=== PATIENT | male | born 1965 | race African-American/Black ===

== ENCOUNTER 2024-04-03 13:31 | Inpatient (IN) ==
[2024-04-03 15:30] LABS: ABG ALLEN TEST POS
[2024-04-03 15:39] LABS: BASOPHILS # (AUTO) 0.1 X10^3/uL (0.0-0.1); BASOPHILS % (AUTO) 0.9 % (0.2-1.0); EOSINOPHILS # (AUTO) 0.2 x10^3/uL (0.0-0.2); EOSINOPHILS % (AUTO) 1.5 % (0.9-2.9); HEMATOCRIT 36.3 % (42.0-54.0); HEMOGLOBIN 11.8 g/dL (13.5-18.0); LYMPHOCYTES # (AUTO) 2.1 X10^3/uL (1.3-2.9); LYMPHOCYTES % (AUTO) 20.3 % (21.0-51.0); MEAN CORPUSCULAR HEMOGLOBIN 21.8 pg (27.0-34.0); MEAN CORPUSCULAR HGB CONC 32.6 g/dL (33.0-35.0); MEAN PLATELET VOLUME 8.2 fL (7.4-11.0); MONOCYTES # (AUTO) 0.7 x10^3/uL (0.3-0.8); NEUTROPHILS # (AUTO) 7.3 x10^3/uL (2.2-4.8); NEUTROPHILS % (AUTO) 70.3 % (42.0-75.0); PLATELET COUNT 423 X10^3/uL (150.0-450.0); RED BLOOD COUNT 5.41 X10^6/uL (4.7-6.0); RED CELL DISTRIBUTION WIDTH 15.2 % (11.6-16.5); WHITE BLOOD COUNT 10.4 X10^3/uL (3.6-10.0)
--- NOTE | 2024-04-03 15:48 | EKG ---
Test Reason : sob Blood Pressure : */* mmHG Vent. Rate : 62 BPM Atrial Rate : 62 BPM P-R Int : 180 ms QRS Dur : 84 ms QT Int : 450 ms P-R-T Axes : 25 5 -19 degrees QTc Int : 456 ms Normal sinus rhythm Nonspecific T wave abnormality small lateral q waves noted Abnormal ECG No previous ECGs available Confirmed by Armand Jones MD ([id number]) on 04/04/2024 7:28:00 AM Referred By: Confirmed By: Armand Jones MD
[2024-04-03 15:52] LABS: ALANINE AMINOTRANSFERASE 56 Units/L (12-78); ALKALINE PHOSPHATASE 63 Units/L (46-116); ASPARTATE AMINO TRANSFERASE 35 Units/L (15-37); BLOOD UREA NITROGEN 13 mg/dL (7-18); CALCIUM 9.1 mg/dL (8.5-10.1); CARBON DIOXIDE 32.2 mmol/L (21-32); CHLORIDE 101 mmol/L (98-107); COR CA(FOR HYPOALB) 9.9 mg/dL (8.5-10.1); CREATININE 0.94 mg/dL (0.70-1.30); GLUCOSE 102 mg/dL (65-99); POTASSIUM 3.6 mmol/L (3.5-5.1); SODIUM 140 mmol/L (136-145); TOTAL PROTEIN 8.5 g/dL (6.4-8.2); eGFR NON BLACK RACES > 60 (>60)
[2024-04-03 16:00] LABS: MICROCYTOSIS 1+; OVALOCYTES SLIGHT; PLATELET MORPHOLOGY COMMENT NORMAL (NORMAL)
[2024-04-03] MEDS: PROTONIX INJ 40 MG VIAL IVP SCH (16:17)
[2024-04-03] MEDS: ROCEPHIN VIAL 1 GRAM 1 G in NS 100 ML IV 100 ML IV SCH (16:18)
[2024-04-03] MEDS: NS 1,000 ML IV 1,000 ML IV SCH (16:18)
--- NOTE | 2024-04-03 16:26 | RAD ---
EXAMINATION: CHEST, 1 VIEW HISTORY: EXERTIONAL SOB; . COMPARISON STUDY: None. TECHNIQUE: Single AP view of the chest FINDINGS: Lungs are expanded. Equivocal patchy infiltrate left pulmonary base. Mild cardiac silhouette enlarg ement. Normal pulmonary vascular pattern. Bones appear intact. IMPRESSION: Equivocal patchy infiltrate left pulmonary base. Mild cardiac silhouette enlargement. THIS IS AN ELECTRONICALLY VERIFIED FINAL REPORT 04/03/2024 4:23 PM - Electronically signed by Ronel Campo MD
[2024-04-03 16:46] VITALS: BMI 29.6
[2024-04-03] MEDS ORDERED: CONSULT PHARMACY - POTASSIUM & MAGNESIUM XX SCH (20:00)
[2024-04-03] MEDS: KLOR-CON PO SCH (20:32)
--- NOTE | 2024-04-03 20:38 | EKG ---
Test Reason : sob Blood Pressure : */* mmHG Vent. Rate : 58 BPM Atrial Rate : 58 BPM P-R Int : 146 ms QRS Dur : 84 ms QT Int : 476 ms P-R-T Axes : 44 24 -63 degrees QTc Int : 467 ms Sinus bradycardia Possible Left atrial enlargement Nonspecific T wave abnormality tiny lateral q waves Abnormal ECG When compared with ECG of 03-APR-2024 15:11, (Unconfirmed) No significant change was found Confirmed by Armand Jones MD ([id number]) on 04/04/2024 7:27:00 AM Referred By: Confirmed By: Armand Jones MD
[2024-04-04 00:40] LABS: BILIRUBIN,URINE NEGATIVE (NEGATIVE); BLOOD/HEMOGLOBIN,URINE NEGATIVE (NEGATIVE); GLUCOSE, URINE NEGATIVE (NEGATIVE); KETONES,URINE NEGATIVE (NEGATIVE); LEUKOCYTE ESTERASE ,URINE NEGATIVE (NEGATIVE); NITRITES,URINE NEGATIVE (NEGATIVE); PROTEIN,URINE 2+ (NEGATIVE); UROBILINOGEN,URINE NORMAL (NORMAL)
[2024-04-04 00:48] LABS: APPEARANCE,URINE CLEAR (CLEAR); BACTERIA,URINE TRACE /HPF (NEGATIVE); COLOR,URINE YELLOW (YELLOW); RBC,URINE 0-2 /HPF (0-3); SQUAMOUS EPITHELIAL CELL,UR RARE /HPF (NEGATIVE)
--- NOTE | 2024-04-04 03:03 | EKG ---
Test Reason : EXERTIONAL SOB Blood Pressure : */* mmHG Vent. Rate : 49 BPM Atrial Rate : 49 BPM P-R Int : 164 ms QRS Dur : 86 ms QT Int : 490 ms P-R-T Axes : * -14 6 degrees QTc Int : 442 ms Sinus bradycardia Lateral infarct , age undetermined Abnormal ECG When compared with ECG of 03-APR-2024 20:21, (Unconfirmed) Lateral infarct is now present Nonspecific T wave abnormality, improved in Anterior leads Confirmed by Armand Jones MD ([id number]) on 04/04/2024 7:26:02 AM Referred By: Confirmed By: Armand oJnes MD
[2024-04-04 03:34] LABS: BASOPHILS # (AUTO) 0.1 X10^3/uL (0.0-0.1); BASOPHILS % (AUTO) 1.3 % (0.2-1.0); EOSINOPHILS # (AUTO) 0.2 x10^3/uL (0.0-0.2); EOSINOPHILS % (AUTO) 2.5 % (0.9-2.9); HEMATOCRIT 33.6 % (42.0-54.0); HEMOGLOBIN 10.8 g/dL (13.5-18.0); LYMPHOCYTES % (AUTO) 21.8 % (21.0-51.0); MEAN CORPUSCULAR HEMOGLOBIN 21.7 pg (27.0-34.0); MEAN CORPUSCULAR HGB CONC 32.3 g/dL (33.0-35.0); MEAN CORPUSCULAR VOLUME 67.3 fL (80.0-100.0); MEAN PLATELET VOLUME 8.5 fL (7.4-11.0); MONOCYTES # (AUTO) 0.6 x10^3/uL (0.3-0.8); MONOCYTES % (AUTO) 6.9 % (0.0-13.0); NEUTROPHILS # (AUTO) 6.3 x10^3/uL (2.2-4.8); NEUTROPHILS % (AUTO) 67.5 % (42.0-75.0); PLATELET COUNT 430 X10^3/uL (150.0-450.0); RED BLOOD COUNT 4.99 X10^6/uL (4.7-6.0); RED CELL DISTRIBUTION WIDTH 15.1 % (11.6-16.5); WHITE BLOOD COUNT 9.3 X10^3/uL (3.6-10.0)
[2024-04-04 03:43] LABS: ALANINE AMINOTRANSFERASE 52 Units/L (12-78); ALBUMIN 2.5 g/dL (3.4-5.0); ALKALINE PHOSPHATASE 54 Units/L (46-116); ASPARTATE AMINO TRANSFERASE 30 Units/L (15-37); BLOOD UREA NITROGEN 12 mg/dL (7-18); CALCIUM 8.6 mg/dL (8.5-10.1); CARBON DIOXIDE 33.3 mmol/L (21-32); CHLORIDE 104 mmol/L (98-107); COR CA(FOR HYPOALB) 9.8 mg/dL (8.5-10.1); COR NA(FOR HYPERGLY) 141 mmol/L (136-145); CREATININE 0.97 mg/dL (0.70-1.30); GLUCOSE 111 mg/dL (65-99); POTASSIUM 3.8 mmol/L (3.5-5.1); SODIUM 141 mmol/L (136-145); TOTAL PROTEIN 7.3 g/dL (6.4-8.2); eGFR NON BLACK RACES > 60 (>60)
[2024-04-04 03:50] LABS: HYPOCHROMASIA 1+; MICROCYTOSIS 1+; OVALOCYTES SLIGHT; PLATELET MORPHOLOGY COMMENT NORMAL (NORMAL); TARGET CELLS SLIGHT
[2024-04-04] MEDS: PULMICORT NEB TX 0.5 MG NEB SCH (08:39)
[2024-04-04] MEDS ORDERED: CRESTOR TAB 10 MG PO SCH (09:00)
[2024-04-04] MEDS: FLOMAX PO SCH (10:48)
[2024-04-04] MEDS: LASIX IVP ONE (10:49)
[2024-04-04] MEDS: SOLU-Medrol 40 MG VIAL IVP SCH (10:49)
[2024-04-04] MEDS: ZITHROMAX INJ 500 MG VIAL 500 MG in NS 250 ML IV 250 ML IV SCH (11:32)
[2024-04-04] MEDS: XOPENEX 1.25 MG/3 ML NEBULE NEB SCH (13:08)
--- NOTE | 2024-04-04 13:13 | CT ---
EXAMINATION: CTA, CHEST HISTORY: SOB, ELEVATED D DIMER, R/O PE; . COMPARISON: None. TECHNIQUE: Routine axial imaging of the chest was performed. CT angiography of the chest was performed with maxi mum intensity projection images and volume rendered images on a workstation.. The above CT scan was done with automated exposure control and the mA and kV was adjusted to obtain quality images accordin g to patient size. FINDINGS: Lungs: There is bronchial thickening and atelectasis in the lung bases, right middle lobe and lingul a. There is pleural calcification in the lung bases. 3 mm nodule in the right upper lobe. No alveo lar infiltrates, ground-glass opacities or interstitial changes Central Airways: No obstructing endobronchial lesions Pleura: No pleural effusion or pneumothorax Thoracic Aorta: Tapers and enhances normally. Atherosclerotic calcification. Main Pulmonary Trunk: Mildly enlarged at 3.1 cm. This may represent pulmonary arterial hypertension . No CT angiography evidence for acute pulmonary embolus. Evaluation of segmental and subsegmental branches limited by respiratory motion Lymph Nodes: No pathologic hilar, axillary or mediastinal adenopathy Heart/Pericardium: Cardiomegaly. No significant pericardial effusion Liver: No acute findings. GB/Biliary: Not visualized Spleen: Normal size and density Pancreas: No acute findings as visualized Adrenal Glands: Not visualized Kidneys not visualized. Abdominal Aorta: Tapers and enhances normally Retroperitoneum: No pathologically enlarged lymph nodes Bowel/Peritoneal Cavity: No acute findings as visualized Osseous Structures: Degenerative changes are present in the thoracic spine. Other: None IMPRESSION: No CT angiography evidence for acute pulmonary embolus or aortic dissection. Evaluation of segmental and subsegmental branches limited by respiratory motion. Bronchial thickening with atelectasis in the lung bases, right middle lobe and lingula. Pleural calcification at the lung bases. 3 mm nodule in the right upper lobe. In a low risk patient no further workup necessary. In a high-r isk patient recommend repeat CT scan in [address] scan was done with automated exposure control and the mA and kV was adjusted to obtain q uality images according to patient size THIS IS AN ELECTRONICALLY VERIFIED FINAL REPORT 04/04/2024 1:10 PM - Electronically signed by Roosevelt Sarah MD
[2024-04-04] MEDS ORDERED: CONSULT PHARMACY - POTASSIUM & MAGNESIUM XX SCH ×2 (14:00→19:00)
[2024-04-04] MEDS: K-DUR TAB 20 MEQ PO SCH (14:21)
[2024-04-04] MEDS: OMNIPAQUE 350 mg/mL 100 mL BTL 100 ML ONE (14:38)
[2024-04-04] MEDS: K-DUR TAB 20 MEQ PO ONE (17:05)
--- NOTE | 2024-04-04 17:44 | DR.H&P ---
H&P History & Physical for Day of: H&P Date: 04/03/24 Chief Complaint Chief Complaint: sob, weakness History of Present Illness History of Present Illness: PT IS 58M, DIRECT ADMIT WITH SOB, WORSE ON EXERTION. PT STATES HE WAS SICK WITH CHEST CONGESTION AND FLU LIKE SYMPTOMS AND WAS SEEN IN ER IN [place] ON 03/28. PT WAS ADMITTED FOR 2 DAYS AND TOLD HE HAD PNUEMONIA. PT CO STILL VERY WEAK AND SOB. PT DENIES ANY KNOWN CAD. PT HAS PMH OF HTN, HYPERLIPIDEMIA AND OA. PT ADMITTED FOR TREATMENT AND EVALUATION OF ACUTE ILLNESS. Allergies Allergies Allergy/AdvReac Type Severity Reaction Status Date / Time hydrocodone Allergy Verified 04/03/24 17:14 Labs 04/04/24 03:05 04/04/24 03:05 Review of Systems Constitutional: Sweats, Weakness and Malaise Eyes: No Symptoms Reported ENT: No Symptoms Reported Respiratory: No Symptoms Reported, Shortness of Breath, Pleuritic Pain and Wheezing Cardiovascular: Chest Pain (CHEST TIGHTNESS) Gastrointestinal: Nausea Genitourinary: No Symptoms Reported Musculoskeletal: Back Pain Skin: No Symptoms Reported Neurological: Weakness and Other (HEADACHES, DIZZY SPELLS ) Oriented: Normal Eyes: Normal Ear: Normal Nose: Discharge Throat: Exudate Respiratory: Wheezes Throughout Cardiovascular: Bradycardia Auscultation: Bowel Sounds: Normal Palpation: Normal Tenderness: Normal Skin: Decreased Turgur Musculoskeletal: Back:Lumbar Psychiatric: Normal Mood Description: Anxious Speech Pattern: Clear and Appropriate Assessment/Plan (1) Pneumonia: Narrative Support Text: ADMIT, PNEUMONIA PROTOCOL, SERIAL CE AND EKG BLOOD AND SPUTUM CULTURES IV HYDRATION WITH I&OS VERIFY HOME MEDICATIONS BNP, DDIMER ON ADMISSION ROOM AIR ABG, SUPPLEMENTAL O2 Status: Acute (2) SOB (shortness of breath): Status: Acute (3) Hypertension: Status: Acute (4) Weakness: Status: Acute
--- NOTE | 2024-04-04 17:48 | PCM.PROG ---
Progress Note Progress Note for Day of Date of Exam: 04/04/24 Subjective Subjective: PT IS 58 BM, DIRECT ADMIT WITH PNEUMONIA AND DIFFUSE WEAKNESS WITH MARKED SOB, WORSE ON EXERTION. PT WAS STARTED ON IV ATBX WITH PNEUMONIA PROTOCOL ON ADMISSION. PT HAD ELEVEATED DIMER WITH HPOXIA ON ABG, RECOMMENDED CTA CHEST TO RO PE. TECHNICAL MANAGER CONTACTING INSURANCE FOR APPROVAL. PT HAD SERIAL CE THAT WERE STABLE. PT HAS HAD BRADYCARDIA WITHOUT ANY HOME MEDICATION TO CAUSE BRADYCARDIA AND PT DENIES ANY KNOWN HX OF IRREGULAR HEART. PT CO INCREASED LOWER LEG SWELLING SINCE ONSET OF ILLNESS LAST WEEK. PT HAD DIFFUSE DIMINISHED LUNG BASES WITH UPPER EXPIRATORY WHEEZES ON EXAM. PLAN TO OBTAIN AN ECHO TODAY RO CARDIOMYOPATHY, CHF. Past Medical Family Social History Allergies: Allergies hydrocodone Allergy (Verified 04/03/24 17:14) Vital Signs and I&O's Vital Signs: Vital Signs Temperature 98.1 F Temperature 97.9 F Pulse Rate 88 Pulse Rate 61 Respiratory Rate 22 Respiratory Rate 19 Blood Pressure 133/73 Blood Pressure 134/72 O2 Sat by Pulse Oximetry 98 O2 Sat by Pulse Oximetry 98 Intake and Output: Intake & Output 04/02/24 04/03/24 04/04/24 04/05/24 11:59 11:59 11:59 11:59 Intake Total 602 / 602 Balance 602 / 602 Physical Exam Oriented: Normal Eyes: Normal Ear: Normal Nose: Discharge Throat: Exudate Respiratory: Diminished and Wheezes Cardiovascular: Bradycardia Auscultation: Bowel Sounds: Normal Tenderness: Normal Skin: Decreased Turgur Musculoskeletal: Back:Lumbar Psychiatric: Normal Mood Description: Anxious Speech Pattern: Clear and Appropriate Laboratory and Diagnostics 04/04/24 03:05 04/04/24 03:05 Labs: Laboratory WBC 9.3 X10^3/uL (3.6-10.0) 04/04/24 03:05 RBC 4.99 X10^6/uL (4.7-6.0) 04/04/24 03:05 Hgb 10.8 g/dL (13.5-18.0) L 04/04/24 03:05 Hct 33.6 % (42.0-54.0) L 04/04/24 03:05 MCV 67.3 fL (80.0-100.0) L 04/04/24 03:05 MCH 21.7 pg (27.0-34.0) L 04/04/24 03:05 MCHC 32.3 g/dL (33.0-35.0) L 04/04/24 03:05 RDW 15.1 % (11.6-16.5) 04/04/24 03:05 Plt Count 430 X10^3/uL (150.0-450.0) 04/04/24 03:05 Plt Count Comment Adequate (ADEQUATE) 04/04/24 03:05 MPV 8.5 fL (7.4-11.0) 04/04/24 03:05 Neut % (Auto) 67.5 % (42.0-75.0) 04/04/24 03:05 Lymph % (Auto) 21.8 % (21.0-51.0) 04/04/24 03:05 [place]ill % (Auto) 6.9 % (0.0-13.0) 04/04/24 03:05 Eos % (Auto) 2.5 % (0.9-2.9) 04/04/24 03:05 Baso % (Auto) 1.3 % (0.2-1.0) H 04/04/24 03:05 Neut # (Auto) 6.3 x10^3/uL (2.2-4.8) H 04/04/24 03:05 Lymph # (Auto) 2.0 X10^3/uL (1.3-2.9) 04/04/24 03:05 [place]ill # (Auto) 0.6 x10^3/uL (0.3-0.8) 04/04/24 03:05 Eos # (Auto) 0.2 x10^3/uL (0.0-0.2) 04/04/24 03:05 Baso # (Auto) 0.1 X10^3/uL (0.0-0.1) 04/04/24 03:05 Absolute Nucleated RBC 0.0 /100WBC 04/04/24 03:05 Plt Morphology Comment Normal (NORMAL) 04/04/24 03:05 RBC Morphology Abnormal (NORMAL) 04/04/24 03:05 Hypochromasia 1+ A 04/04/24 03:05 Microcytosis 1+ A 04/04/24 03:05 Target Cells Slight A 04/04/24 03:05 Ovalocytes Slight A 04/04/24 03:05 D-Dimer 1.08 ug/ml (0.0-0.57) H 04/03/24 15:10 Sample Site Lra 04/03/24 15:25 ABG pH 7.450 (7.35-7.45) 04/03/24 15:25 ABG pCO2 46.0 mmHg (35.0-45.0) H 04/03/24 15:25 ABG pO2 78.0 mmHg (80.0-100.0) L 04/03/24 15:25 ABG HCO3 32.0 mmol/L (22-26) H* 04/03/24 15:25 ABG O2 Saturation 96.0 % (90-100) 04/03/24 15:25 ABG Base Excess 7.0 mmol/L (-2.0-2.0) H 04/03/24 15:25 Callum Test Pos 04/03/24 15:25 A-a Gradient 14.0 mmHg 04/03/24 15:25 FiO2 21.0 04/03/24 15:25 Blood Gas Comments Pt osiot well eb 04/03/24 15:25 Sodium 141 mmol/L (136-145) 04/04/24 03:05 Corrected Sodium 141 mmol/L (136-145) 04/04/24 03:05 Potassium 3.8 mmol/L (3.5-5.1) 04/04/24 03:05 Chloride 104 mmol/L (98-107) 04/04/24 03:05 Carbon Dioxide 33.3 mmol/L (21-32) H 04/04/24 03:05 BUN 12 mg/dL (7-18) 04/04/24 03:05 Creatinine 0.97 mg/dL (0.70-1.30) 04/04/24 03:05 Est GFR (MDRD) Af Amer > 60 (>60) 04/04/24 03:05 Est GFR (MDRD) Non-Af > 60 (>60) 04/04/24 03:05 Glucose 111 mg/dL (65-99) H 04/04/24 03:05 Calcium 8.6 mg/dL (8.5-10.1) 04/04/24 03:05 Corrected Calcium 9.8 mg/dL (8.5-10.1) 04/04/24 03:05 Magnesium 1.9 mg/dL (2.0-2.9) L 04/04/24 03:05 Total Bilirubin 0.20 mg/dL (0.2-1.0) 04/04/24 03:05 AST 30 Units/L (15-37) 04/04/24 03:05 ALT 52 Units/L (12-78) 04/04/24 03:05 Alkaline Phosphatase 54 Units/L (46-116) 04/04/24 03:05 Creatine Kinase 29 Units/L (39-308) L 04/04/24 03:05 Troponin I High Sens 6.0 ng/L (4.0-60.0) 04/04/24 03:05 Troponin I High Sens Cancelled 04/04/24 03:05 Total Protein 7.3 g/dL (6.4-8.2) 04/04/24 03:05 Albumin 2.5 g/dL (3.4-5.0) L 04/04/24 03:05 Globulin 4.8 g/dL (2.5-4.5) H 04/04/24 03:05 Albumin/Globulin Ratio 0.5 Ratio (1.1-2.1) L 04/04/24 03:05 Specimen Type Clean catch urine 04/04/24 00:30 Urine Color Yellow (YELLOW) 04/04/24 00:30 Urine Appearance Clear (CLEAR) 04/04/24 00:30 Urine pH 6.0 (5.0 - 8.0) 04/04/24 00:30 Ur Specific [place] 1.025 (1.000-1.030) 04/04/24 00:30 Urine Protein 2+ (NEGATIVE) 04/04/24 00:30 Urine Glucose (UA) Negative (NEGATIVE) 04/04/24 00:30 Urine Ketones Negative (NEGATIVE) 04/04/24 00:30 Urine Blood Negative (NEGATIVE) 04/04/24 00:30 Urine Nitrite Negative (NEGATIVE) 04/04/24 00:30 Urine Bilirubin Negative (NEGATIVE) 04/04/24 00:30 Urine Urobilinogen Normal (NORMAL) 04/04/24 00:30 Ur Leukocyte Esterase Negative (NEGATIVE) 04/04/24 00:30 Urine RBC 0-2 /HPF (0-3) 04/04/24 00:30 Urine WBC 0-2 /HPF (0-5) 04/04/24 00:30 Ur Squamous Epith Cells Rare /HPF (NEGATIVE) 04/04/24 00:30 Urine Bacteria Trace /HPF (NEGATIVE) 04/04/24 00:30 Urine Mucus Rare /HPF (NEGATIVE) 04/04/24 00:30 Ur Culture Indicated? No/not indicated 04/04/24 00:30 Plan (1) Pneumonia: Status: Acute Narrative Support Text: PNEUMONIA PROTOCOL, IV ABTX RESP THERAPY PRN SUPPLEMENTAL O2, CTA CHEST RO PE REPEAT AM LABS ECHO, LASIX SOLU MEDROL, BS CONTROL, BP CONTROL (2) SOB (shortness of breath): Status: Acute (3) Hypertension: Status: Acute (4) Weakness: Status: Acute
[2024-04-04] MEDS: MAG-OX TAB PO SCH (19:29)
[2024-04-04] MEDS: CRESTOR TAB 10 MG PO SCH (20:59)
[2024-04-05 05:16] LABS: BASOPHILS % (AUTO) 0.1 % (0.2-1.0); HEMATOCRIT 34.8 % (42.0-54.0); LYMPHOCYTES # (AUTO) 0.8 X10^3/uL (1.3-2.9); LYMPHOCYTES % (AUTO) 4.5 % (21.0-51.0); MEAN CORPUSCULAR HEMOGLOBIN 21.2 pg (27.0-34.0); MEAN CORPUSCULAR HGB CONC 31.7 g/dL (33.0-35.0); MEAN CORPUSCULAR VOLUME 66.7 fL (80.0-100.0); MEAN PLATELET VOLUME 8.6 fL (7.4-11.0); MONOCYTES # (AUTO) 0.1 x10^3/uL (0.3-0.8); MONOCYTES % (AUTO) 0.7 % (0.0-13.0); NEUTROPHILS # (AUTO) 16.1 x10^3/uL (2.2-4.8); NEUTROPHILS % (AUTO) 94.7 % (42.0-75.0); PLATELET COUNT 487 X10^3/uL (150.0-450.0); RED BLOOD COUNT 5.22 X10^6/uL (4.7-6.0); RED CELL DISTRIBUTION WIDTH 15.7 % (11.6-16.5)
[2024-04-05 05:27] LABS: ALANINE AMINOTRANSFERASE 49 Units/L (12-78); ALBUMIN 2.7 g/dL (3.4-5.0); ALKALINE PHOSPHATASE 57 Units/L (46-116); ASPARTATE AMINO TRANSFERASE 22 Units/L (15-37); BLOOD UREA NITROGEN 12 mg/dL (7-18); CALCIUM 8.9 mg/dL (8.5-10.1); CARBON DIOXIDE 31.1 mmol/L (21-32); CHLORIDE 103 mmol/L (98-107); COR CA(FOR HYPOALB) 9.9 mg/dL (8.5-10.1); COR NA(FOR HYPERGLY) 141 mmol/L (136-145); CREATININE 0.95 mg/dL (0.70-1.30); GLUCOSE 158 mg/dL (65-99); MAGNESIUM 2.1 mg/dL (2.0-2.9); POTASSIUM 4.1 mmol/L (3.5-5.1); SODIUM 140 mmol/L (136-145); TOTAL PROTEIN 7.9 g/dL (6.4-8.2); eGFR NON BLACK RACES > 60 (>60)
[2024-04-05 05:57] LABS: HYPOCHROMASIA 1+; MICROCYTOSIS 1+; PLATELET MORPHOLOGY COMMENT NORMAL (NORMAL)
[2024-04-05 05:58] LABS: OVALOCYTES SLIGHT; SCHISTOCYTES SLIGHT; TARGET CELLS SLIGHT
[2024-04-05 08:54] VITALS: TEMP 97.6
[2024-04-05 09:42] LABS: ABG BASE EXCESS 4.1 mmol/L (-2.0-2.0); ABG HCO3 28.5 mmol/L (22-26)
[2024-04-05] MEDS: SOLU-Medrol 40 MG VIAL IVP SCH (10:06)
[2024-04-05 14:23] VITALS: BP 131/65; PULSE 100; RESP 25; O2SAT 95
== END 2024-04-05 14:30 | disposition home or self-care (01) | DRG 195 ==
LOC: ICU → OBSVTOIN 14:39
PROVIDERS: ADMIT Internal Medicine; ATTEND Internal Medicine
DX: R06.02 Shortness of breath; R00.1 Bradycardia, unspecified; E78.5 Hyperlipidemia, unspecified; R07.89 Other chest pain; J18.8 Other pneumonia, unspecified organism; R53.1 Weakness; I10 Essential (primary) hypertension; R94.31 Abnormal electrocardiogram [ECG] [EKG]; R79.1 Abnormal coagulation profile